=== PATIENT | female | born 1950 | race Caucasian/White ===

== ENCOUNTER → 2016-09-27 | Outpatient (CLI) | payer MEDICARE, OTHER ==
[~2016-09-27] VITALS: Ht 160 cm; Wt 67.1 kg
[~2016-09-27] MED LIST: ACET50TAOT PO; ALBU83IN INH; AMLO10TA PO; ATIV1TAB10 PO; BUPR10TASR PO; BUPR1TAB17 PO; CENTTAB47 PO; CHLO25CA PO; CLON2PA TD; CLON2PA TOP; CLONI1TA PO; FOLI1TAB2 PO; HYDR1INJ IV; IPRASOL4 INH; LIDOCAINE 2% MDV 20 ML VIAL As Ordered ONE; LOSA100T36 PO; LOVE1INJ SC; MACR25CA2 PO; MULT1TAB8 PO; NICO21PAT TD; NS 1,000 ML IV SCH; PANT40TA2 PO; PRED10TA PO; PROPOFOL 500 MG/50 ML VIAL As Ordered ONE; PULM0.5S INH; THIA100T PO; [UNRECOGNIZED DRUG - CODE] IV
--- NOTE | 2016-09-27 14:43 | ROOR ---
Patient Name: Carmen Pelaez Procedure Date: 09/27/2016 1:56 PM Date of : 1950 Age: 66 Room: [facility] Gender: Female Note Status: Finalized Procedure: Colonoscopy Indications: Positive Cologuard test Providers: Robby MORROW MD Referring MD: DAISHA BLACK MD Requesting Provider: Medicines: Monitored Anesthesia Care Complications: No immediate complications. Procedure: Pre-Anesthesia Assessment: - The heart rate, respiratory rate, oxygen saturations, blood pressure, adequacy of pulmonary ventilation, and response to care were monitored throughout the procedure. The Colonoscope was introduced through the anus and advanced to the cecum, identified by appendiceal orifice and ileocecal valve. The colonoscopy was performed without difficulty. The patient tolerated the procedure well. The quality of the bowel preparation was good. Findings: The perianal and digital rectal examinations were normal. (EXAM: Complete, PREP:Adequate) A medium-sized polypoid lesion was found appendiceal orifice. The lesion was sessile. This was biopsied with a cold forceps for histology. A medium-sized polypoid lesion was found at the hepatic flexure. The lesion was sessile. This was biopsied with a cold forceps for histology. Area was tattooed with an injection of Carol ink. Four sessile polyps were found in the splenic flexure and ascending colon. The polyps were 5 to 6 mm in size. These polyps were removed with a cold snare. Resection and retrieval were complete. Impression: - Benign appearing (r/o malignancy) flat polypoid lesion (2-3 cm) at the cecum/appendiceal orifice. Biopsied. - Benign appearing (r/o malignancy) flat polypoid lesion (2 cm) at the hepatic flexure. Biopsied. (Tattooed.) - Four 5 to 6 mm polyps at the splenic flexure and in the ascending colon, removed with a cold snare. Resected and retrieved. - Redundant colon, small internal hemorrhoids. Recommendation: - If the pathology report reveals adenomatous tissue, then refer to a surgeon. Due to her very redundant colon, both of these lesions are very difficult to access and are not amenable to endoscopic removal. Robby Morrow MD Rboby MORROW MD 09/27/2016 2:43:05 PM This report has been signed electronically. Number of Addenda: 0 Note Initiated On: 09/27/2016 1:56 PM Estimated Blood Loss: Estimated blood loss: none.
[2016-09-27 15:00] VITALS: BP 160/98
== END | disposition home or self-care (01) ==
LOC: M OPP 11:33
PROVIDERS: ATTEND Internal Medicine Gastroenterology
DX: K63.5 Polyp of colon (principal); D12.3 Benign neoplasm of transverse colon; D12.2 Benign neoplasm of ascending colon; I10 Essential (primary) hypertension; Z87.891 Personal history of nicotine dependence; Z79.899 Other long term (current) drug therapy; Z88.0 Allergy status to penicillin

== ENCOUNTER → 2016-10-24 | Outpatient (CLI) | payer MEDICARE ==
[~2016-10-24] MED LIST changes: -LIDOCAINE 2% MDV 20 ML VIAL As Ordered ONE; +METR500T10 PO; +NEOM50TA PO; -NS 1,000 ML IV SCH; -PROPOFOL 500 MG/50 ML VIAL As Ordered ONE
--- NOTE | 2016-10-24 12:53 | ECGEPIP ---
Stationary ECG Study [facility] Test Date: 2016-10-24 Pat Name: ROVERTO HARRY Department: Room: - Gender: F Component Technician: [facility] : 1950 Requested By: GERMÁN CHILDERS Order Number: [id number] Reading MD: Ryan Antonio Measurements Intervals [place] Rate: 76 P: 77 MO: 154 QRS: 30 QRSD: 93 T: 52 QT: 366 QTc: 412 Interpretive Statements Normal sinus rhythm LA conduction disturbance Poor precordial R-wave progression with T-wave abnormalities Rule out prior septal injury Somewhat different precordial lead placement so difficult to evaluate whether there is any actual evolutionary T-wave change. Clinical correlation advised with repeat EKG for comparison Electronically Signed On 10-24-2016 12:53:22 EDT by Ryan Antonio
[2016-10-24 13:11] LABS: ANION GAP 12 MEQ/L (8-16); BLOOD UREA NITROGEN 13 MG/DL (7-18); CALCIUM LEVEL 10.1 MG/DL (8.8-10.2); CARBON DIOXIDE LEVEL 23 MEQ/L (21-32); CHLORIDE LEVEL 102 MEQ/L (98-107); CREATININE FOR GFR 0.87 MG/DL (0.55-1.02); GLOMERULAR FILTRATION RATE > 60.0 (>45); GLUCOSE, FASTING 68 MG/DL (80-110); POTASSIUM SERUM 4.1 MEQ/L (3.5-5.1); SODIUM LEVEL 137 MEQ/L (136-145)
== END ==
LOC: M LAB 12:15
PROVIDERS: ATTEND Anesthesiology
DX: Z01.818 Encounter for other preprocedural examination (principal)

== ENCOUNTER 2016-10-29 11:36 | Inpatient (IN) | payer MEDICARE ==
--- NOTE | 2016-10-28 21:14 | HPE ---
DATE OF SCHEDULED ADMISSION: 10/29/2016 ADMITTING DIAGNOSIS: Non-endoscopically resectable polyps of right colon. HISTORY OF PRESENT ILLNESS: The patient is a very pleasant 66-year-old woman who had recently undergone colon cancer screening testing with a Cologuard test. This came back positive and she was referred to Dr. Morrow of gastroenterology who performed a colonoscopy on 09/27/2016. At the colonoscopy, she was found to have several polyps in the right colon. There was one larger non-endoscopically resectable lesion at the area of the appendiceal orifice. There was a second polyp in the hepatic flexure which was sessile and also not endoscopically resectable. The distal-most of these two lesions was tattooed with Carol ink. Biopsies revealed serrated polyps. Dr. Morrow felt that these were not amendable to an endoscopic resection and referred her for colectomy. The patient has been counseled regarding the procedure, laparoscopic right hemicolectomy and is now admitted to undergo surgery. It is anticipated she will have completed her mechanical and antibiotic bowel preparation using SUPREP and neomycin and Flagyl the day before surgery. ALLERGIES: The patient reports adverse reaction to PENICILLINS. MEDICATIONS: Include: - losartan 100 mg by mouth daily - bupropion hydrochloride 150 mg by mouth twice daily. - She takes a multivitamin daily. - Tylenol as needed. MEDICAL HISTORY: The patient is a former smoker who has chronic obstructive pulmonary disease. She has a history of hypertension. SURGICAL HISTORY: Significant for a right breast biopsy in 1974 and a left breast biopsy in about 1989. These were both benign. She underwent repair of an ankle fracture and has undergone a right oophorectomy. SOCIAL HISTORY: She quit smoking about a year ago. She does drink alcohol up to two drinks a day. FAMILY HISTORY: The patient's father had some sort of lymph node cancer and her mother is secondary to hypertension and pulmonary embolus. Her siblings have hypertension. REVIEW OF SYSTEMS: The patient denies any chronic severe headaches, seizure or stroke. She has no history of deep vein thrombosis (DVT) or pulmonary embolus. She denies any chest pain or palpitations. She does become somewhat short of breath with exercise. She has no cough, wheezing or sputum production. She denies any rectal bleeding. She denies constipation or diarrhea. There is no history of dysuria, hematuria or renal stones. She denies any bone or joint problems. She denies any history of anxiety or depression. PHYSICAL EXAMINATION: Reveals a pleasant woman who at the time of her exam was 63 inches in height and 68 kg in weight, yielding a body mass index (BMI) of approximately 26. She is alert, oriented and cooperative. Skin is warm and dry. Sclerae are anicteric. Mucous membranes are moist. The neck is supple without mass or bruit. Heart: Exam reveals a regular rate and rhythm. The lungs are clear to auscultation bilaterally, though the breath sounds are somewhat distant. The abdomen is thin and flat. She has an old scar low in the abdomen. Palpation reveals no evidence of hernia. She has no mass or tenderness, and there is no sign of abdominal aortic aneurysm. Extremities show no peripheral edema. She has palpable radial and pedal pulses. IMPRESSION: 1. Non-endoscopically resectable colonic polyps of the right colon. 2. Chronic obstructive pulmonary disease. 3. Hypertension. PLAN: The patient is being admitted on 10/29/2016 to undergo a laparoscopic right hemicolectomy. The patient will perform her preoperative antibiotic and mechanical bowel preparation at home. She was counseled regarding the procedure to include the risks and possible benefits. She desires to proceed with the surgery. A Wayne catheter will be inserted in the operating room. She will be positioned flat using a beanbag to prevent movement as she is manipulated for laparoscopy. She will receive a dose of Entereg and a dose of Invanz preoperatively. Thromboembolism deterrents (TEDs) and sequentials will be utilized for DVT prophylaxis. FIDEL
[~2016-10-29] VITALS: Ht 154.9 cm; Wt 64.0 kg
[~2016-10-29 11:36] MED LIST changes: +buPROPion 75 MG TAB PO SCH
[2016-10-29] MEDS ORDERED: LIDOCAINE 2% INJ 100 MG/5 ML SDV (FOR ANES.) As Ordered ONE (11:50)
[2016-10-29] MEDS ORDERED: PROPOFOL 200 MG/20 ML VIAL As Ordered ONE (11:50)
[2016-10-29] MEDS ORDERED: ONDANSETRON 4MG/2ML VIAL (J2405) As Ordered ONE (11:50)
[2016-10-29] MEDS ORDERED: ROCURONIUM BROMIDE 50 MG/5 ML VIAL As Ordered ONE ×2 (11:50→16:06)
[2016-10-29] MEDS ORDERED: MIDAZOLAM INJ 2 MG/2 ML VIAL (J2250) As Ordered ONE (11:51)
[2016-10-29] MEDS ORDERED: fentaNYL 100 MCG/2 ML INJECTION (J3010) As Ordered ONE ×2 (11:51→15:59)
[2016-10-29] MEDS ORDERED: LR 1,000 ML IV SCH ×4 (12:00→20:30)
[2016-10-29] MEDS ORDERED: ALVIMOPAN 12 MG CAPSULE (ENTEREG) PO ONE (12:00)
[2016-10-29] MEDS ORDERED: ERTAPENEM SODIUM 1 GM in NS MINI-BAG PLUS 50 ML IV ONE (12:00)
[2016-10-29] MEDS ORDERED: BUPIVACAINE HCL 0.25% 30 ML VIAL As Ordered ONE (13:36)
[2016-10-29] MEDS ORDERED: PHENYLephrine HCL 500 MCG/5 ML (100MCG/ML) SYRINGE (J2370) As Ordered ONE (16:12)
[2016-10-29] MEDS ORDERED: ePHEDrine SULFATE 25 MG/5 ML(5MG/ML) SYRINGE As Ordered ONE (16:14)
[2016-10-29] MEDS ORDERED: HYDROmorphone HCL 2 MG/ML 1ML VIAL (J1170) As Ordered ONE (16:41)
[2016-10-29] MEDS ORDERED: GLYCOPYRROLATE INJ 0.2 MG/ML 2 ML VIAL As Ordered ONE (18:26)
[2016-10-29] MEDS ORDERED: NEOSTIGMINE 1MG/ML 5 ML SYRINGE (J2710) As Ordered ONE (18:26)
[2016-10-29] MEDS ORDERED: HYDROmorphone HCL 1 MG/ML SYRINGE (J1170) As Ordered ONE (19:18)
[2016-10-29] MEDS: HYDROmorphone HCL 1 MG/ML SYRINGE (J1170) IV PRN ×3 (19:24→19:52)
[2016-10-29] MEDS ORDERED: NORCO, ANEXSIA 5/325MG TABLET (HYDROcodone/ACETAMINOPHEN) PO PRN (19:30)
[2016-10-29] MEDS ORDERED: ONDANSETRON 4MG/2ML VIAL (J2405) IV PRN ×3 (19:30→20:30)
[2016-10-29] MEDS ORDERED: METOCLOPRAMIDE INJ 10MG/2ML VIAL (J2765) IV PRN (19:30)
[2016-10-29] MEDS ORDERED: PERCOCET 5MG/325MG TAB PO PRN ×2 (19:30→20:30)
[2016-10-29] MEDS ORDERED: ACETAMINOPHEN TAB 650MG DOSE (2X325MG) PO PRN (19:30)
[2016-10-29] MEDS ORDERED: fentaNYL 100 MCG/2 ML INJECTION (J3010) IV PRN ×2 (19:30→20:30)
[2016-10-29] MEDS ORDERED: MORPHINE 2 MG/ML 1ML SYRINGE IV PRN (19:30)
[2016-10-29] MEDS: KETOROLAC 30 MG/ML VIAL (J1885) IV SCH (19:39)
[2016-10-29 20:20] VITALS: BP 176/104
[2016-10-29] MEDS ORDERED: HYDROmorphone HCL 1 MG/ML SYRINGE (J1170) IV PRN (20:30)
[2016-10-29 20:50] VITALS: BP 155/98
[2016-10-29 21:20] VITALS: BP 150/90
[2016-10-29 22:20] VITALS: BP 151/89
[2016-10-29] MEDS: LOSARTAN 50 MG TAB PO SCH (22:50)
[2016-10-29] MEDS: ALVIMOPAN 12 MG CAPSULE (ENTEREG) PO SCH (22:50)
[2016-10-29] MEDS: LR 1,000 ML IV SCH (22:51)
[2016-10-29 23:20] VITALS: BP 156/85
[2016-10-30] VITALS (7 sets, daily range): BP systolic 116–165; BP diastolic 67–90
[2016-10-30] MEDS: KETOROLAC 30 MG/ML VIAL (J1885) IV SCH ×2 (02:00→10:28)
[2016-10-30] MEDS: LR 1,000 ML IV SCH ×2 (03:25→05:48)
[2016-10-30] MEDS: ENOXAPARIN 40 MG/0.4 ML SYRINGE (J1650) SC SCH (05:48)
[2016-10-30 06:59] LABS: BASO % 0.1 % (0.0-1.0); EOS # 0.1 K/mm3 (0.0-0.50); EOS % 2.5 % (0.0-3.0); LARGE UNSTAINED CELL # 0.1 K/mm3 (0.0-0.4); LARGE UNSTAINED CELL % 2.4 % (0.0-4.0); LYMPH # 1.9 K/mm3 (1.5-4.5); MEAN CORPUSCULAR HEMOGLOBIN 36.4 pg (27.0-33.0); MEAN CORPUSCULAR HGB CONC 33.2 g/dl (32.0-36.5); MEAN CORPUSCULAR VOLUME 109.5 fl (80.0-96.0); MONO # 0.4 K/mm3 (0.0-0.8); NEUTROPHILS # 2.8 K/mm3 (1.8-7.7); PLATELET COUNT, AUTOMATED 190 k/mm3 (150-450); RED CELL DISTRIBUTION WIDTH 13.4 % (11.5-14.5); WHITE BLOOD COUNT 5.4 K/mm3 (4.0-10.0)
[2016-10-30 07:01] LABS: ADD MORPHOLOGY? YES
[2016-10-30 07:09] LABS: CALCIUM LEVEL 9.1 MG/DL (8.8-10.2); CREATININE FOR GFR 1.16 MG/DL (0.55-1.02); GLOMERULAR FILTRATION RATE 49.9 (>45); POTASSIUM SERUM 4.1 MEQ/L (3.5-5.1)
[2016-10-30] MEDS: ALVIMOPAN 12 MG CAPSULE (ENTEREG) PO SCH ×2 (10:30→20:18)
[2016-10-30] MEDS: LOSARTAN 50 MG TAB PO SCH (10:30)
[2016-10-30] MEDS ORDERED: BUPR150T5 PO (10:41)
[2016-10-30] MEDS: buPROPion **SR TABLET** (ZYBAN) 150MG PO SCH ×2 (13:21→20:17)
[2016-10-30] MEDS ORDERED: KETOROLAC 30 MG/ML VIAL (J1885) IV PRN (14:00)
[2016-10-31 02:00] VITALS: BP 148/80
[2016-10-31 05:30] LABS: BASO % 0.4 % (0.0-1.0); EOS # 0.2 K/mm3 (0.0-0.50); EOS % 4.2 % (0.0-3.0); LARGE UNSTAINED CELL # 0.1 K/mm3 (0.0-0.4); LARGE UNSTAINED CELL % 2.2 % (0.0-4.0); LYMPH # 1.9 K/mm3 (1.5-4.5); LYMPH % 39.5 % (24.0-44.0); MEAN CORPUSCULAR HEMOGLOBIN 35.1 pg (27.0-33.0); MEAN CORPUSCULAR HGB CONC 31.7 g/dl (32.0-36.5); MEAN CORPUSCULAR VOLUME 110.6 fl (80.0-96.0); MONO # 0.3 K/mm3 (0.0-0.8); MONO % 6.3 % (0.0-5.0); NEUTROPHILS # 2.3 K/mm3 (1.8-7.7); NEUTROPHILS % 47.5 % (36.0-66.0); PLATELET COUNT, AUTOMATED 173 k/mm3 (150-450); RED CELL DISTRIBUTION WIDTH 13.1 % (11.5-14.5); WHITE BLOOD COUNT 4.8 K/mm3 (4.0-10.0)
[2016-10-31 05:32] LABS: ADD MORPHOLOGY? YES
[2016-10-31] MEDS: ENOXAPARIN 40 MG/0.4 ML SYRINGE (J1650) SC SCH (05:56)
[2016-10-31 06:00] VITALS: BP 148/90
[2016-10-31 08:51] VITALS: BP 172/84
[2016-10-31] MEDS: ALVIMOPAN 12 MG CAPSULE (ENTEREG) PO SCH (08:51)
[2016-10-31] MEDS: LOSARTAN 50 MG TAB PO SCH (08:51)
[2016-10-31] MEDS: buPROPion **SR TABLET** (ZYBAN) 150MG PO SCH (08:51)
[2016-10-31 10:00] VITALS: BP 180/100
[2016-10-31] MEDS ORDERED: BUPIVACAINE HCL 0.25% 30 ML VIAL IM ONE (10:50)
--- NOTE | 2016-11-04 09:00 | RO ---
DATE OF PROCEDURE: 10/29/2016 PREOPERATIVE DIAGNOSIS: Cecal and ascending colon polyps. POSTOPERATIVE DIAGNOSIS: Cecal and ascending colon polyps. PROCEDURE PERFORMED: Laparoscopic right hemicolectomy. SURGEON: Dr. Lazarus Avila DIRECTOR SPECIAL EDUCATION: Dr. Earlene Davenport ANESTHESIA: General. INDICATIONS FOR PROCEDURE: The patient is a 66-year-old woman who had recently undergone colonoscopy and was found to have a sessile polyp in the cecum as well as another sessile polyp in the region of the hepatic flexure. These were biopsied, but not felt to be endoscopically resectable. Biopsies revealed serrated polyps. The distal most of these was marked with a spot marker at the time of the endoscopy. She is now for a laparoscopic right hemicolectomy. OPERATIVE PROCEDURE: The patient was taken to the operating room where she was placed supine on the operating table. She was placed under general endotracheal anesthesia. Thromboembolic deterrent stockings (TEDS) and sequentials were utilized. A Wayne catheter was inserted. The patient's abdomen was prepped and draped in a sterile fashion. She had a scar in the low midline, so to avoid this a Veress needle was inserted in the left lower quadrant and the abdomen was insufflated with carbon dioxide gas. A 5 mm port was placed over a 5 mm scope and this was advanced into the abdomen without difficulty. Inspection revealed that there were some fairly dense adhesions between the superior aspect of the right lobe of the liver and the diaphragm. Otherwise, the abdomen was largely devoid of adhesions. A short incision was made above the umbilicus and a Roberts cannula was inserted without difficulty. A 10 mm camera was then inserted at this location. A second 5 mm port was placed low in the midline and a third 5 mm trocar was placed in the left upper quadrant. The patient was rolled to the left and tilted to a slight reverse Trendelenburg position. The cecum and ascending colon were readily identified. There appeared to be some dark staining at the distal ascending colon area. Interestingly, some of the marker appeared to have tracked through attachments of the ascending colon and hepatic flexure to the abdominal wall. Using the harmonic scalpel, the lateral attachments of the cecum were divided. The appendix was readily identified. The division of the lateral attachments proceeded distally along the ascending colon to the hepatic flexure. The hepatic flexure was then mobilized by dividing some of the attachments beneath the liver. There were some adhesions in the area of the gallbladder which were also lysed to aid in mobilization. The greater omentum was elevated off of the transverse colon and folded superiorly. The hepatic flexure was found to be somewhat redundant. The attachments along the superior aspect of the proximal ascending colon were then further divided to completely free the hepatic flexure and proximal transverse colon. The retroperitoneal duodenum was identified and preserved. Attention was then focused back to the area of the terminal ileum. The terminal ileum was not adherent laterally to a significant degree. The mesentery of the terminal ileum just proximal to the ileocecal valve was opened. The terminal ileum was divided with a firing of the Bishop stapler. The mesentery was divided down to its base. The appendix was brought along with the cecum. The right ureter was identified and preserved. The mesentery of the descending colon was then divided, still using the harmonic scalpel. The ileocolic vessel was divided toward its base. The mesentery was freed medially and dissection proceeded up to the hepatic flexure. The transverse colon was divided with a second firing of the Bishop stapler and the mesentery was divided down to its base completing the freeing of the right colon. The area of the dissection was inspected and there were no areas of bleeding identified. Graspers were then placed on the ends of the terminal ileum and the transverse colon and a third grasper was placed on the specimen. The abdomen was deflated. The Roberts cannula was removed and the midline incision was extended inferiorly around the left side of the umbilicus to a total of approximately 5 cm. A small wound protector was inserted. The specimen was delivered and set aside for later inspection. The ends of the terminal ileum and transverse colon were then brought to the incision. These both appeared well vascularized. A small amount of fibrofatty tissue on the colon was excised to allow for the anastomosis. A stapled anastomosis was then performed using a linear cutter 55 stapler and the Bishop stapler to complete the anastomosis. This created a nice anastomosis with excellent hemostasis and a wide lumen. The area of the anastomosis was washed off with irrigation and inspected and there was no bleeding and the tissues appeared well vascularized. This was reduced into the abdomen. The wound protector was removed. At this time, the surgical team changed gown and gloves. At this point, I opened the specimen. There was some flat polypoid tissue in the area of the appendiceal orifice and cecum. In the distal ascending colon at the area of the spot marker, in a small area, there were some small fragments of polypoid tissue identified. The specimen was sent for permanent pathology. The team then addressed closure of the midline incision. The peritoneum was closed with a #1 Vicryl. The fascia was then closed with interrupted simple sutures of #1 Vicryl. The wound was filled with a moistened gauze. The abdomen was then reinflated. Inspection of the area of the anastomosis was performed. Several loops of small bowel that were extending posterior to the anastomosis were pulled inferiorly to allow the anastomosis to fall posteriorly. There was no evidence of bleeding. Final inspection of the right upper quadrant and area of dissection showed no evidence of bleeding. The abdomen was then deflated and the trocars were removed. The incisions were then all closed with buried #4-0 or #5-0 Vicryl. The patient tolerated the procedure well without apparent complication. She was awakened in the operating room, extubated and moved to the recovery room in stable condition. I would add that in the course of the dissection inspection in the pelvis showed that the right ovary was surgically absent. The patient was noted to have some thrombus in what appeared to be the right ovarian vein. In the course of dissection in the region of the pelvic brim as the terminal ileum and cecum were freed, the ovarian vessel was entered and some clot was released. The ends of the vessel were sealed with the harmonic scalpel.
== END 2016-10-31 14:20 | disposition home or self-care (01) | DRG 331 ==
LOC: M OR 11:36 → M MSPAV 20:12
PROVIDERS: ADMIT Surgery; ATTEND Surgery
PROC: 0DBK4ZZ Excision of Ascending Colon, Percutaneous Endoscopic Approach (ICD-10-PCS; principal; 2016-10-29 13:30)
DX: D12.2 Benign neoplasm of ascending colon (principal); I10 Essential (primary) hypertension; J44.9 Chronic obstructive pulmonary disease, unspecified; Z88.0 Allergy status to penicillin; Z79.899 Other long term (current) drug therapy; Z87.891 Personal history of nicotine dependence

== ENCOUNTER 2018-12-25 08:18 | Day surgery (SDC) | payer MEDICARE ==
[~2018-12-25] VITALS: Ht 157.5 cm; Wt 64.0 kg
[~2018-12-25 08:18] MED LIST changes: +ACET-907 PO; +ACET500T15 PO; -ACET50TAOT PO; +AMLO5TAB6 PO; +ASPI81TA26 PO; +BUPR150T5 PO; -BUPR1TAB17 PO; +BUPR1TAB53 PO; +CLON0.2D TD; +CLON0.2D TOP; -CLON2PA TD; -CLON2PA TOP; +FOLI1TAB11 PO; -FOLI1TAB2 PO; +IPRA0.00 INH; +IPRA2IN INH; -IPRASOL4 INH; -LOSA100T36 PO; +LOSA100T50 PO; +LOSA50TA88 PO; +METR-265 PO; -METR500T10 PO; +NEOM500T PO; -NEOM50TA PO; +NICO21DI3 TD; -NICO21PAT TD; -PANT40TA2 PO; +PANT40TA3 PO; +PRED-351 PO; -PRED10TA PO; -THIA100T PO; +THIA100T7 PO; +VITA-183 PO; -buPROPion 75 MG TAB PO SCH
[2018-12-25] MEDS ORDERED: LIDOCAINE 2% INJ 100 MG/5 ML SDV (FOR ANES.) As Ordered ONE (08:38)
[2018-12-25] MEDS ORDERED: PROPOFOL 200 MG/20 ML VIAL As Ordered ONE (08:38)
[2018-12-25] MEDS ORDERED: NS 1,000 ML IV SCH (09:00)
[2018-12-25] MEDS ORDERED: PHENYLephrine HCL 500 MCG/5 ML (100MCG/ML) SYRINGE (J2370) As Ordered ONE (09:39)
--- NOTE | 2018-12-25 09:54 | ROOR ---
Patient Name: Carmen Pelaez Procedure Date: 12/25/2018 9:25 AM Date of : 1950 Age: 68 Room: OP02 Gender: Female Note Status: Finalized Procedure: Colonoscopy Indications: High risk colon cancer surveillance: Personal history of colonic polyps (History of right marcia for endoscopically unresectable benign polyps/positive cologuard in 2016) Providers: Robby MORROW MD Referring MD: DAISHA BLACK MD Requesting Provider: Medicines: Monitored Anesthesia Care Complications: No immediate complications. Procedure: Pre-Anesthesia Assessment: - The heart rate, respiratory rate, oxygen saturations, blood pressure, adequacy of pulmonary ventilation, and response to care were monitored throughout the procedure. The Colonoscope was introduced through the anus and advanced to the ileocolonic anastomosis. The colonoscopy was performed without difficulty. The patient tolerated the procedure well. The quality of the bowel preparation was good. Findings: The perianal and digital rectal examinations were normal. There was evidence of a prior end-to-side ileo-colonic anastomosis in the transverse colon. This was patent and was characterized by healthy appearing mucosa. The sigmoid colon was moderately tortuous. A 5 mm polyp was found in the descending colon. The polyp was sessile. The polyp was removed with a cold snare. Resection and retrieval were complete. Two sessile polyps were found in the sigmoid colon. The polyps were 5 mm in size. These polyps were removed with a cold snare. Resection and retrieval were complete. Mild sigmoid diverticulosis and small internal hemorrhoids. Impression: - Patent end-to-side ileo-colonic anastomosis, characterized by healthy appearing mucosa. - Tortuous colon. - One 5 mm polyp in the descending colon, removed with a cold snare. Resected and retrieved. - Two 5 mm polyps in the sigmoid colon, removed with a cold snare. Resected and retrieved. - Mild sigmoid diverticulosis and moderate internal hemorrhoids. Recommendation: - Repeat colonoscopy in 3 years for surveillance. Robby Morrow MD Robby MORROW MD 12/25/2018 9:54:19 AM Electronically signed by Robby MORROW MD Number of Addenda: 0 Note Initiated On: 12/25/2018 9:25 AM Estimated Blood Loss: Estimated blood loss: none.
[2018-12-25 10:17] VITALS: BP 134/71
== END 2018-12-25 10:19 | disposition home or self-care (01) ==
LOC: M OPP 08:18
PROVIDERS: ATTEND Internal Medicine Gastroenterology
DX: K63.5 Polyp of colon (principal); K57.30 Diverticulosis of large intestine without perforation or abscess without bleeding; K64.8 Other hemorrhoids; Q43.8 Other specified congenital malformations of intestine; Z86.010 Personal history of colon polyps; Z98.0 Intestinal bypass and anastomosis status
CPT/HCPCS: 45385; 88305; J2370

== ENCOUNTER → 2022-01-17 | Outpatient (CLI) | payer MEDICARE ==
[~2022-01-17] MED LIST changes: +ALBU2.5V10 INH; -ALBU83IN INH; +AMLO1TAB24 PO; -AMLO5TAB6 PO; +BUPR-71 PO; -BUPR150T5 PO; +LOSA100T45 PO; -LOSA100T50 PO; +LOSA50TA28 PO; -LOSA50TA88 PO; +PANT40TA29 PO; -PANT40TA3 PO; +VITA100093 PO
== END ==
LOC: M LABSMTC 11:58
PROVIDERS: ATTEND Anesthesiology
DX: Z01.812 Encounter for preprocedural laboratory examination (principal); Z20.822 Contact with and (suspected) exposure to COVID-19

== ENCOUNTER 2022-01-22 09:43 | Day surgery (SDC) | payer MEDICARE ==
[~2022-01-22] VITALS: Ht 157.5 cm; Wt 55.8 kg
[~2022-01-22 09:43] MED LIST changes: +NS 1,000 ML IV ONE
[2022-01-22] MEDS ORDERED: propofoL 200 MG/20 ML VIAL As Ordered ONE (09:52)
[2022-01-22] MEDS ORDERED: LIDOCAINE W/EPINEPHRINE 1% 20ML VIAL As Ordered ONE (09:52)
[2022-01-22] MEDS ORDERED: fentaNYL 100 MCG/2 ML INJECTION As Ordered ONE (12:25)
[2022-01-22 13:10] VITALS: BP 116/57
== END 2022-01-22 13:12 | disposition home or self-care (01) ==
LOC: M OPP 09:43
PROVIDERS: ATTEND Internal Medicine Gastroenterology
DX: Z12.11 Encounter for screening for malignant neoplasm of colon (principal); Z86.010 Personal history of colon polyps; K63.5 Polyp of colon; K64.8 Other hemorrhoids; Q43.8 Other specified congenital malformations of intestine; Z98.0 Intestinal bypass and anastomosis status; I10 Essential (primary) hypertension; J44.9 Chronic obstructive pulmonary disease, unspecified; F17.210 Nicotine dependence, cigarettes, uncomplicated; Z79.1 Long term (current) use of non-steroidal anti-inflammatories (NSAID); Z79.82 Long term (current) use of aspirin; Z79.899 Other long term (current) drug therapy; Z88.0 Allergy status to penicillin; Z90.49 Acquired absence of other specified parts of digestive tract; Z90.721 Acquired absence of ovaries, unilateral; Z80.7 Family history of other malignant neoplasms of lymphoid, hematopoietic and related tissues
CPT/HCPCS: 45385; 88305; J3010

== ENCOUNTER → 2022-02-21 | Outpatient (CLI) | payer MEDICARE ==
[~2022-02-21] MED LIST changes: -NS 1,000 ML IV ONE
== END ==
LOC: M LABSMTC 11:55
PROVIDERS: ATTEND Student in an Organized Health Care Education/Training Program
DX: Z01.812 Encounter for preprocedural laboratory examination (principal); Z20.822 Contact with and (suspected) exposure to COVID-19

== ENCOUNTER → 2022-08-12 | Outpatient (CLI) | payer MEDICARE ==
[2022-08-12 12:03] LABS: FREE T4 0.84 NG/DL (0.89-1.76); THYROID STIMULATING HORMONE 2.998 uIU/ML (0.55-4.78)
== END ==
LOC: M LAB 10:46
PROVIDERS: ATTEND Physician Assistant Medical
DX: R19.7 Diarrhea, unspecified (principal); R63.4 Abnormal weight loss

== ENCOUNTER → 2022-08-21 | Outpatient (CLI) | payer MEDICARE ==
[2022-08-21 13:41] LABS: ALBUMIN 3.5 G/DL (3.2-5.2); BILIRUBIN,DIRECT 0.2 MG/DL (<0.4); BILIRUBIN,TOTAL 0.5 MG/DL (0.3-1.2); CALCIUM LEVEL 9.5 MG/DL (8.3-10.6); CREATININE FOR GFR 1.15 MG/DL (0.55-1.30); GLOMERULAR FILTRATION RATE 49.5 (>39); TOTAL PROTEIN 6.9 G/DL (5.7-8.2)
[2022-08-21 13:44] LABS: BASO % 0.7 % (0.0-1.0); EOS # 0.1 10^3/uL (0.0-0.5); EOS % 0.9 % (0.0-3.0); HEMATOCRIT 38.1 % (36.0-47.0); LYMPH # 1.7 10^3/uL (1.5-5.0); LYMPH % 28.7 % (24.0-44.0); MEAN CORPUSCULAR HEMOGLOBIN 39.3 pg (27.0-33.0); MEAN CORPUSCULAR HGB CONC 34.1 g/dl (32.0-36.5); MONO # 0.7 10^3/uL (0.0-0.8); MONO % 11.7 % (2.0-8.0); NEUTROPHILS # 3.3 10^3/uL (1.5-8.5); PLATELET COUNT, AUTOMATED 202 10^3/uL (150-450); RED BLOOD COUNT 3.31 10^6/uL (4.00-5.40); WHITE BLOOD COUNT 5.7 10^3/uL (4.0-10.0)
[2022-08-21 14:04] LABS: MEAN CORPUSCULAR VOLUME 115.1 fl (80.0-96.0)
[2022-08-21 14:40] LABS: ANISOCYTOSIS 1+
[2022-08-21 14:41] LABS: PLATELET ESTIMATE NORMAL (NORMAL)
[2022-08-26 17:08] LABS: ANGIOTENSIN 1 CONVERTING ENZYM 38 U/L (14-82); ASPERGILLUS FLAVUS ABY Negative (Neg:<1:1); ASPERGILLUS FUMIGATUS ABY Negative (Neg:<1:1); ASPERGILLUS NIGER ABY Negative (Neg:<1:1); BLASTOMYCES ANTIBODY LEVEL Negative (Neg:<1:1); CRYPTOCOCCUS ANTIGEN SER Negative (Negative)
== END ==
LOC: M PLALAB 11:10
PROVIDERS: ATTEND Internal Medicine Pulmonary Disease
DX: R91.8 Other nonspecific abnormal finding of lung field (principal)

== ENCOUNTER → 2022-09-09 | Outpatient (CLI) | payer MEDICARE | LOC: M PLARAD 14:18 | PROVIDERS: ATTEND Internal Medicine | DX: R91.1 Solitary pulmonary nodule (principal) | CPT/HCPCS: 78816; A9552 ==

== ENCOUNTER → 2022-09-10 | Outpatient (CLI) | payer MEDICARE | LOC: M CARPUL 09:24 | PROVIDERS: ATTEND Internal Medicine Pulmonary Disease | DX: J44.9 Chronic obstructive pulmonary disease, unspecified (principal) ==

== ENCOUNTER → 2022-09-26 | Outpatient (CLI) | payer MEDICARE ==
[~2022-09-26] MED LIST changes: +AMLO25TA PO; +BUDE10.7 IH; +CYAN2500 PO; +MUCI600T31 PO; +POTA10CA33 PO; +SERT-141 PO; +VITMTA PO
== END ==
LOC: M LABSMTC 10:56
PROVIDERS: ATTEND Anesthesiology
DX: Z01.812 Encounter for preprocedural laboratory examination (principal); Z20.822 Contact with and (suspected) exposure to COVID-19

== ENCOUNTER 2022-10-01 11:19 | Day surgery (SDC) | payer MEDICARE ==
[~2022-10-01] VITALS: Ht 160 cm; Wt 48.4 kg
[~2022-10-01 11:19] MED LIST changes: +NS 1,000 ML IV ONE
[2022-10-01 13:40] VITALS: BP 110/65
== END 2022-10-01 13:50 | disposition home or self-care (01) ==
LOC: M OPP 11:19
PROVIDERS: ATTEND Internal Medicine Gastroenterology
DX: K52.9 Noninfective gastroenteritis and colitis, unspecified (principal); K57.30 Diverticulosis of large intestine without perforation or abscess without bleeding; K64.8 Other hemorrhoids; Z98.0 Intestinal bypass and anastomosis status; K44.9 Diaphragmatic hernia without obstruction or gangrene; R63.4 Abnormal weight loss; I10 Essential (primary) hypertension; J44.9 Chronic obstructive pulmonary disease, unspecified; F17.200 Nicotine dependence, unspecified, uncomplicated; Z79.51 Long term (current) use of inhaled steroids; Z79.82 Long term (current) use of aspirin; Z79.899 Other long term (current) drug therapy; Z88.0 Allergy status to penicillin; Z90.721 Acquired absence of ovaries, unilateral; Z90.89 Acquired absence of other organs; Z80.8 Family history of malignant neoplasm of other organs or systems

== ENCOUNTER → 2023-09-22 | Outpatient (CLI) | payer MEDICARE ==
[~2023-09-22] MED LIST changes: -CHLO25CA PO; +CHLO25CA10 PO; -LOSA100T45 PO; +LOSA100T46 PO; -NS 1,000 ML IV ONE; -POTA10CA33 PO; +POTA10CA60 PO
== END ==
LOC: M PLALAB 09:56
PROVIDERS: ATTEND Physician Assistant Medical
DX: R97.8 Other abnormal tumor markers (principal); R63.4 Abnormal weight loss